=== PATIENT | male | born 1985 | race Caucasian/White ===

== ENCOUNTER 2019-05-15 19:14 | Emergency (ER) | payer SELFPAY ==
[~2019-05-15] VITALS: Ht 175.3 cm; Wt 77.0 kg
[2019-05-15 21:29] LABS: BASOPHILS % 0.3 % (0.0-2.0); EOSINOPHILS % 1.1 % (0.0-5.0); HEMATOCRIT. 40.4 % (42.0-52.0); HEMOGLOBIN. 13.4 g/dL (14.0-18.0); LYMPHOCYTES % 43.3 % (20.0-50.0); MEAN CORPUSCULAR HEMOGLOBIN 29.5 pg (28.0-32.0); MEAN CORPUSCULAR VOLUME 88.9 fL (80.0-94.0); MEAN PLATELET VOLUME 9.4 fl (7.4-10.4); MONOCYTES % 4.4 % (2.0-8.0); NEUTROPHILS % 50.9 % (40.0-76.0); PLATELET 282 x1000/uL (130-400); RED BLOOD CELL COUNT 4.54 mill/uL (4.7-6.1); RED CELL DISTRIBUTION WIDTH 15.8 % (11.6-14.6)
[2019-05-15 21:35] LABS: CHLORIDE 111 mEq/L (98-107)
[2019-05-15 21:39] LABS: ETHANOL BLOOD 218 mg/dL
[2019-05-15 21:42] LABS: *AMPHETAMINES SCREEN URINE NEGATIVE (NEGATIVE); *BARBITURATES SCREEN URINE NEGATIVE (NEGATIVE); *BENZODIAZEPINES SCREEN URINE NEGATIVE (NEGATIVE); *COCAINE SCREEN URINE NEGATIVE (NEGATIVE); CANNABINOID URINE SCREEN NEGATIVE (NEGATIVE); METHADONE URINE SCREEN NEGATIVE (NEGATIVE); OPIATES URINE SCREEN NEGATIVE (NEGATIVE)
[2019-05-15 21:43] LABS: CREATINE KINASE 463 IU/L (39-308); PHENCYCLIDINE URINE SCREEN NEGATIVE (NEGATIVE)
[2019-05-16 10:44] VITALS: BP 119/78
== END 2019-05-16 11:09 | disposition home or self-care (01) ==
LOC: ER 19:14
DX: F23 Brief psychotic disorder (principal); F22 Delusional disorders
CPT/HCPCS: 36415; 80305; 80307; 80320; 80329; 82550; 82962; 99283; G0480

== ENCOUNTER 2019-05-26 17:34 | Emergency (ER) | payer OTHER ==
[~2019-05-26] VITALS: Ht 175.3 cm; Wt 75.0 kg
[2019-05-26 20:09] LABS: BASOPHILS % 0.6 % (0.0-2.0); EOSINOPHILS % 1.2 % (0.0-5.0); HEMATOCRIT. 40.4 % (42.0-52.0); HEMOGLOBIN. 13.3 g/dL (14.0-18.0); LYMPHOCYTES % 36.8 % (20.0-50.0); MEAN CORPUSCULAR HEMOGLOBIN 29.5 pg (28.0-32.0); MEAN CORPUSCULAR VOLUME 89.4 fL (80.0-94.0); MONOCYTES % 6.7 % (2.0-8.0); NEUTROPHILS % 54.7 % (40.0-76.0); PLATELET 237 x1000/uL (130-400); RED BLOOD CELL COUNT 4.51 mill/uL (4.7-6.1); RED CELL DISTRIBUTION WIDTH 16.6 % (11.6-14.6)
[2019-05-26 20:11] LABS: CHLORIDE 110 mEq/L (98-107)
[2019-05-26 20:14] LABS: ETHANOL BLOOD 87 mg/dL
[2019-05-26] MEDS ORDERED: HALOPERIDOL 5MG TABLET PO ONE (20:45)
[2019-05-27 01:08] VITALS: BP 118/79
== END 2019-05-27 01:11 | disposition home or self-care (01) ==
LOC: ER 17:34
DX: R44.0 Auditory hallucinations (principal)
CPT/HCPCS: 36415; 80053; 80320; 85025; 99284; J1630; G0480